=== PATIENT | male | born 1985 | race Caucasian/White ===

== ENCOUNTER 2023-07-20 09:44 | Day surgery (SDC) | payer BC ==
[2023-07-15 15:05] VITALS: BMI 31.5
[2023-07-20] MEDS ORDERED: EPINEPHrine 1 MG/ML VIAL ONE (11:12)
[2023-07-20] MEDS ORDERED: Lidocaine 2% 6 ML (Jelly) SYR ONE (11:12)
[2023-07-20] MEDS ORDERED: Bupivacaine 0.25% HCL 30 ML VIAL ONE (11:12)
[2023-07-20] MEDS ORDERED: ceFOXitin 1 GM VIAL ONE (11:16)
[2023-07-20] MEDS ORDERED: Midazolam HCl 2 mg/2 ml Vial ONE (11:17)
[2023-07-20] MEDS ORDERED: PROPOFOL 20 ML ONE (12:27)
[2023-07-20] MEDS ORDERED: fentaNYL 50 mcg/mL 1 mL Vial ONE (12:27)
[2023-07-20] MEDS ORDERED: Dexamethasone 20 MG/5 ML VIAL ONE (14:32)
[2023-07-20] MEDS ORDERED: Ketorolac Tromethamine 30 MG (1 mL) VIAL ONE (14:32)
[2023-07-20] MEDS ORDERED: Ondansetron PF 4 MG/2 ML Vial ONE (14:32)
[2023-07-20] MEDS ORDERED: Glycopyrrolate 0.2 MG/ML 5 ML SYRINGE ONE (14:37)
== END 2023-07-20 17:00 | disposition home or self-care (01) ==
LOC: CSHSDC 09:44
PROVIDERS: ATTEND Surgery
PROC: 0D8R3ZZ Division of Anal Sphincter, Percutaneous Approach (ICD-10-PCS; principal; 2023-07-20)
DX: K62.89 Other specified diseases of anus and rectum (principal); K60.2 Anal fissure, unspecified; Z91.011 Allergy to milk products; Z91.018 Allergy to other foods; Z98.890 Other specified postprocedural states
CPT/HCPCS: J0171; J0694; J1100; J1885; J2250; J2405; J2704; J3010; S0020

== ENCOUNTER 2023-08-19 13:15 | Emergency (ER) | payer BC ==
[2023-08-19 13:49] LABS: #Monocytes 1.3 10x3/uL (0.0-1.1); #Neutrophils 10.3 10x3/uL (1.5-8.4); %Basophils 0.1 % (0.0-2.0); %Eosinophils 0.1 % (0.0-6.0); %Lymphocytes 14.5 % (18.0-47.0); %Monocytes 9.3 % (0.0-10.0); %Neutrophils 75.5 % (40.0-75.0); Hematocrit 42.8 % (38.8-50.0); Hemoglobin 15.2 g/dL (13.5-17.5); Mean Corpuscular HGB CONC 35.5 g/dL (32.0-36.0); Mean Corpuscular Hemoglobin 31.1 pg (27.0-33.0); Mean Corpuscular Volume 87.7 fl (81.2-95.1); Mean Platelet Volume 11.4 fl (7.4-10.4); Platelet Count 251 10x3/uL (150-450); RBC Distribution Width 11.9 % (11.5-14.5); Red Blood Cell (RBC) Count 4.88 10x6/uL (4.32-5.72); White Blood Cell (WBC) Count 13.6 10x3/uL (3.5-10.5)
[2023-08-19 14:06] LABS: Acetaminophen Less than 10 mcg/mL (10.0-30.0); Alcohol Less than 10.0 mg/dL (Less than 10); Salicylate Less than 8.0 mg/dL (15.0-30.0)
[2023-08-19 14:08] LABS: ALT (SGPT) 44 U/L (8-55); AST (SGOT) 57 U/L (5-34); Albumin 4.6 g/dL (3.5-5.0); Alkaline Phosphatase 60 U/L (40-110); Anion Gap 18 mmol/L (10-20); BUN (Urea Nitrogen) 8 mg/dL (8.9-20.6); Bilirubin, Total 1.2 mg/dL (0.2-1.2); Calc. Creatinine Clearance 0 mL/min (70-130); Calcium 9.3 mg/dL (7.8-10.44); Carbon Dioxide 23 mmol/L (22-29); Chloride 98 mmol/L (98-107); Estimated GFR 86; Globulin 2.4 g/dL (2.4-3.5); Glucose 139 mg/dL (70-105); Potassium 3.9 mmol/L (3.5-5.1); Sodium 135 mmol/L (136-145)
== END 2023-08-19 14:59 | disposition left against medical advice (07) ==
LOC: CSHERS 13:15
DX: S22.42XA Multiple fractures of ribs, left side, initial encounter for closed fracture (principal); S92.415A Nondisplaced fracture of proximal phalanx of left great toe, initial encounter for closed fracture; V28.49XA Other motorcycle driver injured in noncollision transport accident in traffic accident, initial encounter
CPT/HCPCS: 36415; 36416; 70450; 71260; 72125; 74177; 80053; 80307; 85025